=== PATIENT | female | born 1965 | race Caucasian/White ===

== ENCOUNTER 2023-06-21 12:39 | Emergency (ER) | payer SELFPAY ==
[2023-06-21 12:56] VITALS: BP 192/101
[2023-06-21 13:19] LABS: % Basophils 0.8 % (0-2); % Eosinophils 0.8 % (0-6); % Immature Granulocytes 0.1 % (0-0.5); % Lymphocytes 26.1 % (20.5-51.1); % Monocytes 4.6 % (1.7-9.3); % Neutrophils 67.6 % (42.2-75.2); Absolute Basophils 0.1 10^3/uL (0-0.2); Absolute Eosinophils 0.1 10^3/uL (0-0.7); Absolute Monocytes 0.4 10^3/uL (0.1-0.6); Absolute Neutrophils 5.3 10^3/uL (1.4-6.5); Hematocrit 40.9 % (37.0-47.0); Hemoglobin 13.8 g/dL (12.0-16.0); Mean Corp Hgb Conc. 33.7 g/dL (33.0-37.0); Mean Corpuscular Hgb 31.3 pg (27.0-31.0); Mean Corpuscular Volume 92.7 fL (81.0-99.0); Mean Platelet Volume 10.1 fL (7.4-10.4); Nucleated Red Blood Cells % 0 %; Platelet Count 293 10^3/uL (130-400); Red Blood Cell Count 4.41 10^6/uL (4.20-5.40); Red Cell Dist. Width 13.6 % (11.5-14.5); White Blood Cell Count 7.8 10^3/uL (4.8-10.8)
[2023-06-21 13:31] LABS: ALT (SGPT) 25 U/L (0-35); AST (SGOT) 29 U/L (14-36); Albumin 4.5 g/dl (3.5-5.0); Alkaline Phosphatase 84 U/L (38-126); Blood Urea Nitrogen 13 mg/dl (7-17); Calcium 9.7 mg/dl (8.4-10.2); Carbon Dioxide 23 mmol/L (22-30); Chloride 106 mmol/L (98-107); Glucose 105 mg/dl (70-99); Sodium 139 mmol/L (135-145); Total Bilirubin 0.8 mg/dl (0.2-1.3); Total Protein 7.4 g/dl (6.3-8.2); eGFR > 60.00
[2023-06-21 13:43] LABS: Troponin I < 0.012 ng/ml
--- NOTE | 2023-06-21 15:26 | ED.GENMED ---
History of Present Illness
General
Chief Complaint: Blood Pressure Problem
Time Seen by Provider: 06/21/23 14:37
Travel History
Have you had any contact with someone who has COVID-19?: No
Do you have any symptoms of coronavirus? Fever > 100 degrees, chills, cough, shortness of breath, sore throat, loss of taste or smell, muscle aches, or headache?: No
History of Present Illness
History of Present Illness:
58-year-old female presents emergency department for evaluation of headaches and chest tingling for the past several weeks. States she notes her blood pressure has been high but does not take it routinely. Today she was with her mother at a health
care visit when the nurse requested check her blood pressure due to facial flushing and noted that it was greater than 190/100. She has no prior history of hypertension. Lost her health insurance last year and does not have primary care
Past History
Past History
ED Past Medical History: None
Social History
Personal:
Review of Systems
Review of Systems
Allergies reviewed?: Yes
All Other Systems: ROS reviewed and negative except as documented in HPI and ROS
Phy Exam
Physical Exam
Physical Exam:
GEN: Well appearing, NAD, WDWN
HEENT: Oral mucosa moist, no scleral icterus
Cardiac: Regular rate and rhythm, no murmurs
Lung: No respiratory distress, no tachypnea, lungs clear to auscultation bilaterally
MSK: No gross deformity or injuries
Skin: Good color, no pallor or jaundice, no rashes
Neuro: AO x3, moves all extremities freely
Psych: Calm, cooperative
Course
Orders/Labs/Results
Orders:
Orders
06/21/23 12:58
ECG [Electrocardiogram (*1)] Urgent
Reason for Study: Chest Pain
06/21/23 12:59
EKG- Treatment ONCE
06/21/23 13:06
Complete Blood Count/With Diff Urgent
Comprehensive Metabolic Panel Urgent
Troponin I Urgent
Abnormal Lab Results
06/21/23
13:06
MCH 31.3 H pg
(27.0-31.0)
Glucose 105 H mg/dl
(70-99)
06/21/23 13:06
06/21/23 13:06
Vital Signs
Initial and Last Documented VS:
Initial Vital Signs
Temp Pulse Resp BP Pulse Ox
98.2 F 81 20 192/101 96
06/21/23 12:56 06/21/23 12:56 06/21/23 12:56 06/21/23 12:56 06/21/23 12:56
Last Documented Vital Signs
Temp Pulse Resp BP Pulse Ox
98.2 F 81 20 165/98 96
06/21/23 12:56 06/21/23 12:56 06/21/23 12:56 06/21/23 15:36 06/21/23 12:56
MDM/Problems Addressed
MDM/Problems Addressed:
Patient with no evidence of endorgan damage due to her hypertension. This is likely been ongoing for quite some time and there is no indication for urgent antihypertensive therapy. Will initiate her on oral amlodipine, provided with information
for the outpatient free clinic
Comment
Comment:
EKG independently interpreted by me shows normal sinus rhythm at a rate of 71, some patient motion artifact limits interpretation, no ST changes concerning for ischemia
*Critical Care Note
Total Time (30-74mins, 75-104mins- exclusive of procedures): Not Applicable
ED Attending Note
-
Portions of this chart may have been created with voice recognition software.� Occasional wrong word or��sound alike� substitutions may have occurred due to the inherent limitations of voice recognition software.
Discharge Plan
Departure
Patient Disposition: Home (Routine Discharge)
Date of Disposition: 06/21/23
Time of Disposition: 15:28
Patient with high blood pressure during this ER visit?: Yes
Discharge Problem:
Hypertension, uncontrolled
Instructions: High Blood Pressure (DC)
Prescriptions:
New
amlodipine 5 mg tablet
5 mg PO DAILY Qty: 30 0RF
No Action
No Current Medications
oxycodone-acetaminophen 5 MG/325 MG tablet
1 tab PO Q4HPRN PRN (Reason: pain) Qty: 20 0RF
Activity Restrictions/Additional Instructions:
[facility]
[phone]
Located inside [facility]
Interventions
Interventions:
*Risk Screen - Suicide Last Done: 06/21/23 15:00
*General Assessment Last Done: 06/21/23 15:00
*Neglect/Abuse Screening Last Done: 06/21/23 15:00
ED- Fall Risk Assessment Last Done: 06/21/23 15:00
*ED COVID-19 Vaccine History Last Done: 06/21/23 12:56
*Nursing Disposition Last Done: 06/21/23 15:42
ED- Cardiac Assessment Last Done: 06/21/23 15:00
ED- Neurological Assessment Last Done: 06/21/23 15:00
ED- Pulmonary Assessment Last Done: 06/21/23 15:00
Discharge Date and Time
Discharge Date/Time: 06/21/23 15:43
Print Language: POLISH
[2023-06-21 15:36] VITALS: BP 165/98
== END 2023-06-21 15:43 | disposition home or self-care (01) ==
LOC: EMR 12:39
PROVIDERS: EMERGENCY PHYSICIAN Emergency Medicine; FAMILY PHYSICIAN Family Medicine
DX: I10 Essential (primary) hypertension (principal)
CPT/HCPCS: 99284; 80053; 84484; 85025; 93005